=== PATIENT | male | born 1960 | race Caucasian/White ===

== ENCOUNTER 2022-09-26 16:18 | Outpatient (CLI) | payer BC, SELFPAY ==
[2022-09-26 17:12] LABS: Influenza A QL RT-PCR Negative (Negative); Influenza B QL RT-PCR Negative (Negative); SARS-CoV-2 RNA PCR Negative (Negative)
== END 2022-09-26 16:19 | disposition home or self-care (01) ==
LOC: CHSLAB 16:22
PROVIDERS: PCP Internal Medicine; Visit Provider Internal Medicine
DX: R05.9 Cough, unspecified (principal); J02.9 Acute pharyngitis, unspecified; Z20.822 Contact with and (suspected) exposure to COVID-19
CPT/HCPCS: 87636